=== PATIENT | male | born 1950 | race Caucasian/White ===

== ENCOUNTER 2019-07-23 22:45 | Emergency (ER) | payer MEDICARE, OTHER ==
[~2019-07-23] VITALS: Ht 165.1 cm; Wt 78.5 kg
[2019-07-23 22:50] VITALS: Ht 165.1 cm; Wt 78.5 kg
[2019-07-24 03:07] VITALS: BP 160/98; PULSE 75; RESP 18
== END 2019-07-24 03:33 | disposition home or self-care (01) ==
LOC: EDBD 22:45 → E/R 22:45
DX: F41.9 Anxiety disorder, unspecified (principal)
CPT/HCPCS: 80307; 99283